=== PATIENT | female | born 1970 | race Caucasian/White ===

== ENCOUNTER 2019-04-07 05:24 | Day surgery (SDC) | payer BC, OTHER ==
[2019-04-01 16:27] VITALS: BMI 23.6
[2019-04-07] MEDS ORDERED: BUPIVACAINE HCL/PF 0.5% (5 MG/ML) 30 ML VIAL IJ ONE ×3 (07:18→10:41)
[2019-04-07] MEDS ORDERED: PHENAZOPYRIDINE HCL 100 MG TABLET (FP) PO ONE ×2 (07:19→07:26)
[2019-04-07] MEDS ORDERED: CEFAZOLIN 2 GM in DEXTROSE 5%-WATER - 100 ML IVPB ONE (07:19)
[2019-04-07] MEDS ORDERED: ceFAZolin SODIUM 1 GM VIAL ONE (07:20)
[2019-04-07] MEDS ORDERED: ROPIVACAINE HCL 0.5% 30ML VIAL ONE ×2 (07:28→07:46)
[2019-04-07] MEDS ORDERED: MIDAZOLAM HCL 2 MG/2 ML SINGLE DOSE VIAL ONE ×2 (07:29)
[2019-04-07] MEDS ORDERED: fentaNYL CITRATE 250 MCG/5 ML VIAL ONE (07:43)
[2019-04-07] MEDS ORDERED: ROCURONIUM BROMIDE 50 MG/5 ML SYRINGE ONE ×2 (07:43→08:45)
--- NOTE | 2019-04-07 07:44 | HP ---
History & Physical Update - History History: No Change - Physical Physical: No Change - Assessment Assessment: No Change - Plan Plan: No Change (no changes since visit with Dr. Hernandez on 03/25/19)
[2019-04-07] MEDS ORDERED: GENTAMICIN SO4 80 MG/2 ML VIAL IVPB ONE (08:20)
[2019-04-07] MEDS ORDERED: GENTAMICIN SO4 80 MG/2 ML VIAL ONE (08:39)
[2019-04-07] MEDS ORDERED: ePHEDrine SULFATE 50 MG/1 ML AMPULE ONE (08:52)
[2019-04-07] MEDS ORDERED: DESFLURANE GAS 240 ML BOTTLE IH ONE (09:51)
[2019-04-07] MEDS ORDERED: NEOSTIGMINE METHYLSULFATE 0.5 MG/ML - 10 ML MDV ONE (10:59)
[2019-04-07] MEDS ORDERED: ONDANSETRON 4 MG/2 ML VIAL ONE (11:25)
[2019-04-07] MEDS ORDERED: BISACODYL 5 MG TABLET.DR (FP) PO PRN (11:35)
[2019-04-07] MEDS ORDERED: ACETAMINOPHEN 325 MG TABLET (FP) PO PRN (11:35)
[2019-04-07] MEDS ORDERED: SIMETHICONE 80 MG TAB.CHEW (FP) PO PRN (11:35)
[2019-04-07] MEDS ORDERED: oxyCODONE HCL 5 MG TABLET PO PRN ×2 (11:35)
[2019-04-07] MEDS ORDERED: IBUPROFEN 800 MG/8 ML IJ IVPB PRN (11:35)
[2019-04-07] MEDS ORDERED: DOCUSATE SODIUM 100 MG CAPSULE (FP) PO PRN (11:35)
[2019-04-07] MEDS ORDERED: LACTATED RINGERS SOLUTION 1,000 ML/1,000 ML INFUS.BAG IV SCH (11:45)
[2019-04-07] MEDS ORDERED: FAMOTIDINE 20 MG/50 ML IVPB 20 MG/50 ML MG IVPB ONE ×3 (11:56→15:29)
[2019-04-07] MEDS ORDERED: FAMOTIDINE 20 MG PREMIXED IVPB IVPB ONE (12:00)
--- NOTE | 2019-04-07 13:10 | OP ---
DATE OF OPERATION: 04/07/2019 PREOPERATIVE DIAGNOSIS: Leiomyomatous uterus and pelvic prolapse. OPERATION: Laparoscopic robotic total hysterectomy and bilateral salpingectomy. SURGEON: Sharda Meneses MD EXTRUDING PRESS OPERATOR: EMANUEL Bahena ANESTHESIA: General. FINDINGS: Uterus approximately 13 weeks in size. A myoma noted to be approximately 10-11 cm located on the left side of the patient. Cervix was prolapsed out of the vagina. PROCEDURE: Patient was taken to the operating room, placed in dorsal lithotomy position, prepped and draped in the usual sterile fashion. Time-out was performed in accordance with hospital regulation. Speculum was placed in the vagina. Anterior lip of the cervix was grasped with a single-tooth tenaculum. Cervix was then dilated to accommodate the uterine manipulator. Manipulator was inserted, and cervix was covered. Major catheter was inserted into the bladder. Attention was then drawn to the umbilicus where an 8-mm umbilical incision was made. Veress needle was inserted into the cavity. Approximately 3-4 L of CO2 was insufflated in the cavity. Veress needle was then removed, and an 8-mm trocar was then inserted. Laparoscope and camera were attached. Visualization revealed about a 10- to 11-cm left myoma noted in the uterus. Two trocars were placed on the left 10 from the umbilical and also up in the upper abdomen on the left and 2 trocar were placed on the right side parallel to each other under direct visualization. Da Stefani robot was then side docked to the patient's bedside. Trocars were then inserted. Instruments were then inserted under direct visualization. Attention was then drawn to the console where control of the console was then done. Tenaculum was then used to elevate the uterus. The myoma was noted to be in the way of the operation, so a myomectomy was performed with the Endo Bharathi. The myoma was then enucleated out and removed from the uterus. Utero-ovarian ligament was identified, clamped, and cut. Fallopian tube identified, clamped, and cut. Uterine artery was identified, clamped, and cut all on the left side. Vesicouterine reflection was then entered. Bladder was bluntly dissected out of the operative field. The same procedure was then repeated on the right side. The utero-ovarian ligament was then identified, clamped, and cut. Round ligament was identified, clamped, and cut. Uterine artery was identified, clamped, and cut down to the level of the cervix on both sides using LigaSure. Endo Bharathi were then used to enter the vagina and circumferential incision the vagina was cut away from the cervix. The uterine manipulator was then removed and the uterus was then exteriorized out of the vagina. Same with the myoma. The large 11-cm myoma was also exteriorized out of the vagina after some manipulation and cutting of the myoma. Hemostasis was achieved. Ureters were identified and found to have peristalsis. The 2-0 V-Lock suture was then used to close the vagina in continuous fashion. Hemostasis was achieved. All bleeding was controlled. The estimated blood loss was about 50 mL. All instruments were then removed, CO2 was removed from the abdomen. Incision was then closed using 4-0 Biosyn suture in a subcuticular fashion. Wound was washed and dressed. Patient had tolerated the procedure well and was taken to recovery room in stable condition. Mckinley [id number]
--- NOTE | 2019-04-07 14:18 | OP ---
Operative Note - Note: Operative Date: 04/07/19 Pre-Operative Diagnosis: fibroid uterus with uterine prolapse Operation: robotic assisted laparoscopic Hysterectomy with bilateral salpingectomy. Post-Operative Diagnosis: Same as Pre-op Surgeon: Sharda Meneses Bar Tacker Sewing Machine: Tamanna Tsang Anesthesiologist/PLASMA TABLE OPERATOR: Geovanna Canales Anesthesia: General, Local (TAP block) Specimens Removed: uterus. bilateral fallopian tubes Estimated Blood Loss (mls): 50 Drains, Volume Out (mls): 200 (pradhan) Fluid Volume Replaced (mls): 1,700 Operative Report Dictated: Yes
--- NOTE | 2019-04-07 14:20 | SURG ---
Surgery Skating Rink Ice Maker Note Skating Rink Ice Maker: Tamanna Tsang PA-C Date of Service: 04/07/19 Diagnosis: fibroid uterus with uterine prolapse Procedure: robotic assisted laparoscopic Hysterectomy with bilateral salpingectomy. I was present for the entirety of the operative procedure. For further detail, please refer to operative report. Visit type - Case Type Case Type: Scheduled - Emergency Emergency Visit: No - New patient This patient is new to me today: Yes Date on this admission: 04/07/19
[2019-04-07] MEDS ORDERED: metroNIDAZOLE 250 MG TABLET PO SCH (14:30)
[2019-04-07] MEDS: ONDANSETRON 4 MG/2 ML VIAL IVPUSH PRN ×2 (17:30→21:16)
[2019-04-07 18:46] LABS: HEMATOCRIT 34.2 % (32.4-45.2); HEMOGLOBIN 11.2 GM/dL (10.7-15.3); MCH 26.9 pg (25.7-33.7); MCHC 32.8 g/dl (32.0-36.0); MEAN CELL VOLUME 81.8 fl (80-96); MEAN PLT VOLUME 8.4 fl (7.5-11.1); PLATELET COUNT 227 K/MM3 (134-434); RBC 4.18 M/mm3 (3.60-5.2); RDW 13.7 % (11.6-15.6); WHITE BLOOD COUNT 11.2 K/mm3 (4.0-10.0)
[2019-04-07 18:49] LABS: BLOOD UREA NITROGEN 10.1 mg/dL (7-18); CALCIUM 8.4 mg/dL (8.5-10.1); CREATININE 0.6 mg/dL (0.55-1.3); POTASSIUM 3.8 mmol/L (3.5-5.1)
[2019-04-07] MEDS: metroNIDAZOLE 250 MG TABLET PO SCH (19:47)
[2019-04-08] MEDS: metroNIDAZOLE 250 MG TABLET PO SCH (01:00)
[2019-04-08] MEDS ORDERED: LEVOTHYROXINE NA 100 MCG TABLET (FP) PO SCH (07:00)
[2019-04-08 08:24] LABS: HEMATOCRIT 31.7 % (32.4-45.2); HEMOGLOBIN 10.6 GM/dL (10.7-15.3); MCH 27.1 pg (25.7-33.7); MCHC 33.3 g/dl (32.0-36.0); MEAN CELL VOLUME 81.3 fl (80-96); MEAN PLT VOLUME 7.7 fl (7.5-11.1); PLATELET COUNT 223 K/MM3 (134-434); RDW 13.6 % (11.6-15.6); WHITE BLOOD COUNT 7.6 K/mm3 (4.0-10.0)
[2019-04-08 09:12] LABS: BLOOD UREA NITROGEN 7.7 mg/dL (7-18); CALCIUM 8.5 mg/dL (8.5-10.1); CREATININE 0.6 mg/dL (0.55-1.3); POTASSIUM 3.8 mmol/L (3.5-5.1)
--- NOTE | 2019-04-08 09:30 | PN ---
Progress Note (short form) - Note Progress Note: Surgery POD#1 Robotic assisted laparoscopic Hysterectomy with bilateral salpingectomy, patient seen and examined at bedside with no complaints. Patient has been ambulating to the bathroom and voiding. She is tolerating her diet and denies any CP, SOB, N,V fever or chills. Vital Signs Temp 97.6 F 04/08/19 06:00 Pulse 90 04/08/19 06:00 Resp 18 04/08/19 06:00 BP 104/63 04/08/19 06:00 Pulse Ox 99 04/07/19 17:39 Intake & Output 04/07/19 04/07/19 04/08/19 11:59 23:59 11:59 Intake Total 2400 600 1100 Output Total 819 802 7423 Balance 2150 0 100 Weight 133 lb Intake: IV 2400 600 1100 LACTATED RINGERS SOLUTION 600 1100 1,000 ml In 1,000 ml @ 125 mls/hr IV ASDIR KENJI Rx#:[id number] Output: Urine 059 762 3942 Major 200 Void 200 1000 Emesis 50 Estimated Blood Loss 50 Other: Voiding Method Indwelling Catheter Height 5 ft 3 in Body Mass Index (BMI) 23.6 Weight Measurement Method Stated by Patient CBC, BMP 04/08/19 07:40 04/08/19 07:40 PE: A&Ox3, NAD Unlabored resp on RA Abd: soft, ND with mild distension appropriate to status. Incision with minimal bruising and no tracking erythema or evidence of collection or active d/c. B/L LE compartments soft, supple and non-tender with +2 DP pulses. Problem List - Problems (1) History of robot-assisted laparoscopic hysterectomy Assessment/Plan: POD #1 Patient doing well with no complaints. -DVT prophylaxis with SQ heparin, ambulation and scds -regular diet -encourage IS -d/c for home today Code(s): Z90.710 - ACQUIRED ABSENCE OF BOTH CERVIX AND UTERUS (2) Status post robot-assisted surgical procedure Code(s): Z98.890 - OTHER SPECIFIED POSTPROCEDURAL STATES
[2019-04-08] MEDS ORDERED: ENOXAPARIN NA (PORCINE) 40 MG/0.4 ML DISP.SYRIN SQ SCH (10:00)
--- NOTE | 2019-04-08 14:07 | PN ---
Progress Note (short form) - Note Progress Note: Pt Seen. Doing well. POD#1 after Robotic Lap Hyst, under GETA w Bilat TAP Blocks. No recall. No Complaints.
[2019-04-08 16:53] VITALS: BP 110/61; PULSE 78; TEMP 98.8
--- NOTE | 2019-04-09 15:51 | PATH ---
Surgical Pathology Report Patient Name: CHAIM CHOUDHARY [facility]. Rec. #: [id number] /Age/Gender: 1970 (Age: 48) / F Account: [id number] Location: AMBULATORY SURG Taken: 04/07/2019 Received: 04/07/2019 Reported: 04/09/2019 Physicians: Sharda Meneses M.D. Specimen(s) Received A: FALLOPIAN TUBE RIGHT B: FALLOPIAN TUBE LEFT C: UTERUS AND CERVIX D: FIBROID Clinical History Uterine prolapse Final Diagnosis A. FALLOPIAN TUBE, RIGHT, SALPINGECTOMY: UNREMARKABLE FALLOPIAN TUBE (INCLUDING FIMBRIATED END AND FULL LUMINAL PORTION). B FALLOPIAN TUBE, LEFT, SALPINGECTOMY: UNREMARKABLE FALLOPIAN TUBE (INCLUDING FIMBRIATED END AND FULL LUMINAL PORTION). C. UTERUS, CERVIX, ROBOTIC ASSISTED LAPAROSCOPIC HYSTERECTOMY: 143 G UTERUS. LEIOMYOMA(TA), INTRAMURAL AND SUBSEROSAL. SECRETORY ENDOMETRIUM. MYOMETRIUM WITH FOCAL ADENOMYOSIS. CERVIX WITH HYPERKERATOSIS AND ENDOCERVICAL POLYPS. D. FIBROID, MYOMECTOMY: 240 G, LEIOMYOMA(TA). Electronically Signed Patricia Mcdonough M.D. Gross Description A. Received in formalin labeled "right fallopian tube," is a 4.5 cm in length fimbriated fallopian tube. The outer surface is causey-pink and smooth. Sectioning reveals an unremarkable lumen. Surgical Services Director sections are submitted in 2 cassettes as follows: 1-fimbria; 2-cross sections of fallopian tube. B. Received in formalin labeled "left fallopian tube," is a 3.5 cm in length fimbriated fallopian tube. The outer surface is causey-pink and smooth with attached fat. Sectioning reveals an unremarkable lumen. Surgical Services Director sections are submitted in 2 cassettes as follows: 1-fimbria; 2-cross sections of fallopian tube. C. Received in formalin labeled "uterus and cervix," is a 143 g uterus with an attached cervix and no attached adnexa. The specimen measures 11.5 cm from superior to inferior, 5.3 cm from left to right and 4.6 cm from anterior to posterior. The serosa is causey-pink with focal subserosal nodules. The cervix measures 5 cm in length and averages 3 cm in diameter. The ectocervix is causey, smooth and glistening. The endocervix displays two polypoid lesions measuring 0.6 and 1.2 cm in greatest dimension. The endometrial cavity measures 4.5 cm in length and 2 cm from cornu to cornu. The endometrium is causey and averages 0.2 cm in thickness. The myometrium displays multiple intramural nodules, measuring up to 1.7 cm in greatest dimension. The cut surface of the nodules is causey, firm to rubbery with whorled architecture. No areas of hemorrhage or necrosis are identified. The anterior myometrium displays a focal defect with associated hemorrhage. The myometrium averages 1.7 cm in thickness. Surgical Services Director sections are submitted in 9 cassettes as follows: 1-anterior cervix with endocervical polyps; 2-posterior cervix; 3-anterior endomyometrium with focus of hemorrhage; 4-additional anterior endomyometrium; 6-6-yxytlpqih endomyometrium; 2-3-efbkrpffzz nodules; 9-subserosal nodules. D. Received in formalin labeled "fibroid," is a 240 g aggregate of two causey, rubbery nodules measuring 3.4 and 8.0 cm in greatest dimension. Sectioning reveals causey, rubbery parenchyma with whorled architecture. No areas of hemorrhage or necrosis are identified. Surgical Services Director sections are submitted in 6 cassettes as follows: 1-2-smaller fibroid; 3-6-larger fibroid. 04/07/2019 [facility]04/07/2019
== END 2019-04-08 14:10 | disposition home or self-care (01) ==
LOC: JASUSAT 05:24 → J3W 13:34 → JASUSAT 04-08 14:10
PROVIDERS: ATTEND Obstetrics & Gynecology
PROC: 0UT94ZZ Resection of Uterus, Percutaneous Endoscopic Approach (ICD-10-PCS; principal; 2019-04-07 08:00)
PROC: 0UT74ZZ Resection of Bilateral Fallopian Tubes, Percutaneous Endoscopic Approach (ICD-10-PCS; 2019-04-07 08:00)
DX: N81.4 Uterovaginal prolapse, unspecified (principal); D25.9 Leiomyoma of uterus, unspecified
CPT/HCPCS: 36415; 80048; 84703; 85027; 86850; 86900; 86901; 88302-TC; 88305-TC; 88307-TC; 94760